=== PATIENT | male | born 1995 | race Two or more races ===

== ENCOUNTER 2016-11-22 15:27 | Emergency (ER) | payer MEDICAID ==
[~2016-11-22] VITALS: Ht 182.9 cm; Wt 112.9 kg
[2016-11-22 15:28] VITALS: BP 144/87
== END 2016-11-22 17:06 | disposition home or self-care (01) ==
LOC: ED 17:00
DX: H66.002 Acute suppurative otitis media without spontaneous rupture of ear drum, left ear (principal); K21.9 Gastro-esophageal reflux disease without esophagitis
CPT/HCPCS: 99283